=== PATIENT | male | born 2000 | race Caucasian/White ===

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

== ENCOUNTER 2019-03-12 10:24 | Emergency (ER) | payer OTHER ==
[2019-03-12 10:34] VITALS: BP 122/87
--- NOTE | 2019-03-12 10:38 | EDPHY ---
H & P Stated Complaint: left ankle injury 6 hours ago Time Seen by Provider: 03/12/19 10:38 HPI/ROS: HPI: This is 18-year-old male who presents with Chief Complaint: Left ankle injury Location: Left ankle lateral aspect Quality: Injury Duration: 6 hr ago Signs and Symptoms: No bleeding, no radiation, no numbness, no weakness, no tingling, no incontinence, no decreased range of motion,+ swelling, + pain, no fever Timing: Acute Severity: Moderate Context: Patient reports that he is walking down the stairs approximately 6 hr prior to arrival when he tripped over the stair and senia it his left ankle. He reports that he felt immediate, constant, moderate pain in the lateral aspect of his left ankle. He reports that over the last several hours the lateral aspect has gradually swelled. Patient reports that he a prior history of left ankle high sprain that occurred approximately 2 months ago. Pain is increased with weight-bearing. Denies radiculopathy, weakness, decreased range of motion. Modifying Factors: Has not applied ice or taken [id number] pain medications Comment: ROS: A comprehensive 10 system review of systems is otherwise negative aside from elements mentioned in the history of present illness. MEDICAL/SURGICAL/SOCIAL HISTORY: Medical history: Depression, attention deficit hyperactivity disorder Surgical history: Denies Social history: Student at [employer]. Social alcohol user. CONSTITUTIONAL: Well-developed, well-nourished, teenage white male, awake and alert, no obvious distress HEENT: Atraumatic and normocephalic, PERRL, EOMI. Nares patent; no rhinorrhea; no nasal mucosal edema. Tympanic membranes clear. Oropharynx clear, no exudate and moist pink mucosa. Airway patent. No lymphadenopathy. No meningismus. Cardiovascular: Normal S1/S2, regular rate, regular rhythm, without murmur rub or gallop. PULMONARY/CHEST: Symmetrical and nontender. Clear to auscultation bilaterally. Good air movement. No accessory muscle usage. ABDOMEN: Soft, nondistended, nontender, no rebound, no guarding, no peritoneal signs, no masses or organomegaly. No CVAT. EXTREMITIES: 2/2 pulses, strength 5/5, Ankle: Moderate swelling over the lateral malleolus, Plantar flexion decreased to 30, dorsiflexion decreased to 10. Foot inversion decreased to 15 degree. Moderate tenderness/swelling Anterior talofibular ligament. Mild tenderness/swelling Calcaneofibular ligament, no tenderness/swelling posterior talofibular ligament, no tenderness/ swelling posterior inferior tibiofibular ligament. Achilles tendon intact. no deformities, no clubbing, no cyanosis or edema. NEUROLOGICAL: no focal neuro deficits. GCS 15. SKIN: Warm and dry, no erythema. no rash. Good capillary refill. Source: Patient Exam Limitations: No limitations - Personal History Current Tetanus/Diphtheria Vaccine: Yes Current Tetanus Diphtheria and Acellular Pertussis (TDAP): Yes - Medical/Surgical History Hx Asthma: No Hx Chronic Respiratory Disease: No Hx Diabetes: No Hx Cardiac Disease: No Hx Renal Disease: No Hx Cirrhosis: No Hx Alcoholism: No Hx HIV/AIDS: No Hx Splenectomy or Spleen Trauma: No Other PMH: multiple orthopedic injuries - Social History Smoking Status: Never smoked Constitutional: Initial Vital Signs Temperature (C) 36.7 C 03/12/19 10:31 Heart Rate 82 03/12/19 10:31 Respiratory Rate 18 03/12/19 10:31 Blood Pressure 122/87 H 03/12/19 10:31 O2 Sat (%) 96 03/12/19 10:31 O2 Delivery Mode Room Air Allergies/Adverse Reactions: No Known Allergies Allergy (Unverified 10/02/18 16:44) Home Medications: Medication Instructions Recorded Adderall 10 MG (*) 03/12/19 buPROPion 03/12/19 Medical Decision Making - Diagnostics Imaging Results: Imaging Impressions Ankle X-Ray 03/12/19 10:41 Impression: No acute osseous findings. Procedures: Procedure: Splint placement. A right Cunha to and crutches were applied by the Emergency Room regulatory and compliance technician. After application of the splint I returned and re-examined the patient. The splint was adequately immobilizing the joint and distal to the splint the patient's circulation and sensation was intact. ED Course/Re-evaluation: Left ankle x-ray ordered and my read shows no fracture, dislocation. + does show soft tissue swelling on the lateral aspect. Placed in left Cunha boot, crutches, orthopedic follow-up as needed No signs of neurovascular compromise/tenting of skin/compartment syndrome/ extremities and joints examined above and below area of concern and are neurovascularly intact. This patient was seen under the supervision of my secondary supervising physician. I evaluated care for this patient with attending. Differential Diagnosis: Ankle injury differential diagnosis includes but is not limited to tibia fracture, fibula fracture, metatarsal fracture, LisFranc fracture, achilles tendon rupture, sprain. Departure - Departure Disposition: Home, Routine, Self-Care Clinical Impression: Moderate left ankle sprain Qualifiers: Encounter type: initial encounter Qualified Code(s): S93.402A - Sprain of unspecified ligament of left ankle, initial encounter Condition: Good Instructions: Ankle Sprain (ED), Crutch Instructions (ED) Additional Instructions: Wear the walking boot while out of bed until pain free or seen by Orthopedics. Use crutches to aid in ambulation. Start with toe-touch weight-bearing status. Take Tylenol 650 mg every 4 hours and/or Ibuprofen 600 mg every 8 hours with food as needed for pain. Apply ice for 30 minutes at a time; 2-3 times per day for the next 1-2 days. Follow up with Orthopedics in 7-10 days at which time they will evaluate and recommend with you if conservative management versus further imaging is indicated. The x-rays obtained in the emergency department today demonstrate no evidence of an obvious fracture. Sometimes fractures are not obvious on the initial set of x-rays performed in the ED. For this reason, you should have repeat x-rays performed in 7-10 days if you are having any pain exclude the possibility of an occult fracture. Referrals: Richardson Jones MD [Medical Doctor] - As per Instructions
== END 2019-03-12 11:02 | disposition home or self-care (01) ==
DX: S93.402A Sprain of unspecified ligament of left ankle, initial encounter (principal); W18.49XA Other slipping, tripping and stumbling without falling, initial encounter
CPT/HCPCS: L4386